=== PATIENT | female | born 1930 | race Two or more races ===

== ENCOUNTER 2020-04-23 17:15 | Inpatient (IN) | payer MEDICARE, OTHER ==
[~2020-04-23] VITALS: Ht 167.6 cm; Wt 103.4 kg
[2020-04-23] MEDS: METOPROLOL TARTRATE 25 MG TABLET PO SCH (00:44)
[2020-04-23] MEDS ORDERED: OLANZAPINE 10 MG VIAL IM ONE ×2 (17:20→17:30)
--- NOTE | 2020-04-23 17:25 | NUR ---
KENYETTA FROM HOME TO ER BED 6. AAOX1. IN MOD RESP DISTRESS, TACHYPNEIC AND SATTING @ 82% ON NON REBREATHER. BROUGHT IN FOR SOB. PT WAS REPORTED COVID POSITIVE. SHE WAS NOTED SATTING AT 70% BY THE EMS. PT PLACED ON HI FLOW O2 AND NOW SATTING @ 95%. PT IS THOU NOTED KEEPS REMOVING HER CANULA. WAS AT THE BEDSIDE FOR EVAL. ORDERS RECEIVED, NOTED AND CARRIED OUT. IV LINE ESTABLISHED ON R WRIST 20G. BLOOD DRAWN AND SENT TO LAB. PT ON MONITOR.
[2020-04-23 17:55] LABS: BASOPHILS % (AUTO) 0.3 % (0.0-2.0); EOSINOPHILS % (AUTO) 0.1 % (0.0-6.0); HEMATOCRIT 47 % (33-45); HEMOGLOBIN 15.3 g/dL (11.5-14.8); LYMPHOCYTES # (AUTO) 0.6 /CMM (0.8-4.8); LYMPHOCYTES % (AUTO) 8.3 % (20.0-44.0); MEAN CORPUSCULAR HGB CONC 32 g/dl (31.0-36.0); MEAN CORPUSCULAR VOLUME 97 fL (82-100); MONOCYTES # (AUTO) 0.5 /CMM (0.1-1.30); NEUTROPHILS # (AUTO) 5.7 /CMM (1.8-8.9); NEUTROPHILS % (AUTO) 84.3 % (43.0-81.0); PLATELET COUNT (AUTO) 153 /CMM (150-450); RED BLOOD CELL COUNT(AUTO) 4.88 MIL/uL (4.0-5.2); WHITE BLOOD COUNT (AUTO) 6.8 K/uL (4.3-11.0)
[2020-04-23] MEDS ORDERED: MEMA10TA PO (17:55)
[2020-04-23] MEDS ORDERED: ACET325T53 PO (17:55)
[2020-04-23] MEDS ORDERED: TRAM50TA2 PO (17:55)
[2020-04-23] MEDS ORDERED: GABA100C PO (17:55)
[2020-04-23] MEDS ORDERED: ATOR40TA PO (17:55)
[2020-04-23] MEDS ORDERED: ASCO500T20 PO (17:55)
[2020-04-23] MEDS ORDERED: [UNRECOGNIZED DRUG - CODE] PO (17:55)
[2020-04-23] MEDS ORDERED: MAGN400O6 PO (17:55)
[2020-04-23] MEDS ORDERED: CHOL200010 PO (17:55)
[2020-04-23] MEDS ORDERED: AREDS PO (17:55)
[2020-04-23] MEDS ORDERED: GABA300C PO (17:55)
[2020-04-23] MEDS ORDERED: CLOP75TA15 PO (17:55)
[2020-04-23] MEDS ORDERED: BISA10SU61 RC (17:55)
[2020-04-23] MEDS ORDERED: FURO-145 PO (17:55)
[2020-04-23] MEDS ORDERED: POTA8CAP20 PO (17:55)
[2020-04-23] MEDS ORDERED: PRAZ1CAP5 PO (17:55)
[2020-04-23] MEDS ORDERED: QUERCETIN PO (17:55)
[2020-04-23] MEDS ORDERED: METO25TA6 PO (17:55)
[2020-04-23] MEDS ORDERED: NA P133E RC (17:55)
[2020-04-23] MEDS ORDERED: MELA3TAB41 PO (17:55)
[2020-04-23] MEDS ORDERED: TRAZ-182 PO (17:55)
[2020-04-23 18:07] LABS: CALCIUM, SERUM 8.5 mg/dL (8.5-10.1); CARBON DIOXIDE 21 mmol/L (21-32); CHLORIDE 101 mmol/L (98-107); CREATININE 2.1 mg/dL (0.6-1.3); GLUCOSE 127 mg/dL (74-106); POTASSIUM 4.4 mmol/L (3.5-5.1); SODIUM SERUM 137 mmol/L (136-145); UREA NITROGEN, BLOOD 70 mg/dL (7-18)
--- NOTE | 2020-04-23 18:18 | NUR ---
LAB CALLED LACTIC ACID IS 2.2
--- NOTE | 2020-04-23 18:25 | NUR ---
MOVE SHEET SUBMITTED AND CALLED FOR BED.
[2020-04-23 18:26] LABS: ALANINE AMINOTRANSFERASE 28 U/L (12-78); ALBUMIN 2.7 g/dL (3.4-5.0); ALKALINE PHOSPHATASE 94 U/L (46-116); ASPARTATE AMINOTRANSFERASE 99 U/L (15-37); B-TYPE NATRIURETIC PEPTIDE 4804 PG/ML (0-125); BILIRUBIN,TOTAL 0.8 mg/dL (0.2-1.0); TOTAL PROTEIN, SERUM 7.4 g/dL (6.4-8.2)
[2020-04-23] MEDS ORDERED: HYDROCODONE/APAP 5/325MG TABLET PO PRN (18:30)
[2020-04-23] MEDS ORDERED: ONDANSETRON HCL/PF 4 MG/2 ML VIAL IVP PRN (18:30)
[2020-04-23] MEDS ORDERED: ZOLPIDEM TARTRATE 5 MG TABLET PO PRN (18:30)
[2020-04-23] MEDS ORDERED: MAG HYDROX/AL HYDROX/SIMETH 30 ML UDC PO PRN (18:30)
[2020-04-23] MEDS ORDERED: MAGNESIUM HYDROXIDE 30 ML UDC PO PRN (18:30)
[2020-04-23] MEDS ORDERED: Z GUARD REMEDY 2 OZ OINT TP PRN (18:30)
[2020-04-23 18:50] LABS: D-DIMER 3.57 mg/L(FEU (0.17-0.50)
[2020-04-23 18:53] LABS: ABG BASE EXCESS -4.8 mmol/L; ABG OXYGEN SATURATION 89.1 % (92.0-98.5); ABG PCO2 30.4 mmHg (35.0-45.0); ABG PH 7.403 (7.350-7.450); ABG PO2 58.3 mmHg (75.0-100.0); AaDO2 624.3 mmHg; COHb 0.5 % (0.5-1.5); MetHb 0.5 % (0.0-1.5); O2Hb 88.2 % (94.0-97.0); SITE, ABG Right Radial; VENT MODE, BG HFNC 60L 100%
[2020-04-23] MEDS ORDERED: PIPERACILLIN /TAZOBACTAM 3.375 G in IV D5W 50 ML IV ONE (19:00)
[2020-04-23] MEDS ORDERED: ASPIRIN 81 MG TAB.CHEW PO ONE (19:00)
[2020-04-23] MEDS ORDERED: methylPREDNISolone SOD SUCC 125 MG/2ML VIAL IV ONE (19:00)
[2020-04-23] MEDS ORDERED: methylPREDNISolone SOD SUCC 125 MG/2ML VIAL ONE (19:09)
[2020-04-23] MEDS ORDERED: ASPIRIN 81 MG TAB.CHEW ONE (19:09)
[2020-04-23 19:47] LABS: FERRITIN 613 ng/mL (8-388)
[2020-04-23 19:49] LABS: C-REACTIVE PROTEIN 18.4 mg/dL (0.0-0.9)
--- NOTE | 2020-04-23 19:58 | NUR ---
PT NOTED TACHYCARDIC MD MADE AWARE. AWAITING ORDERS. PT IS ALSO NOTED WITH O2 SAT 91%. PLACED ON O2 VIA NON REBREATHER OVER THE HI FLOW.
--- NOTE | 2020-04-23 20:00 | NUR ---
ASSUMED CARE OF PT. PT HERE FOR SOB FROM SNF. REC'D PT ON HIGHFLOW O2. PT HX OF DEMENTIA, REMINDED TO KEEP O2 ON, PT HAS PERIODS OF CONFUSION AND TAKES O2 OUT, MONITORED CLOSELY. VSS. RAY
[2020-04-23] MEDS ORDERED: AMIODARONE 150 MG in IV D5W 100 ML IV ONE (20:30)
[2020-04-23] MEDS ORDERED: PROPOFOL 200 MG/20 ML VIAL IV ONE (20:54)
[2020-04-23] MEDS ORDERED: ROCURONIUM BROMIDE 50 MG/5 ML IV ONE (20:54)
[2020-04-23] MEDS ORDERED: FEE EMEERGENCY 1 MIN EA MC ONE (20:54)
[2020-04-23] MEDS ORDERED: ETOMIDATE 2 MG/ML VIAL IV ONE (20:54)
[2020-04-23 21:04] LABS: BILIRUBIN,DIRECT 0.4 mg/dL (0.0-0.2)
[2020-04-23] MEDS: AMIODARONE 450 MG in IV D5W 250 ML IV PRN (21:24)
--- NOTE | 2020-04-23 22:00 | NUR ---
UPDATED FAMILY RE: PT'S CONDITION, SPOKE TO YESENIA. YESENIA WILL UPDATE OTHER FAMILY MEMBERS.
[2020-04-23] MEDS ORDERED: ENOXAPARIN SODIUM 30 MG/0.3 ML DISP.SYRIN SQ SCH (23:00)
[2020-04-24] MEDS ORDERED: ENOXAPARIN SODIUM 30 MG/0.3 ML DISP.SYRIN ONE (00:47)
--- NOTE | 2020-04-24 03:30 | NUR ---
amiodarone titrated to 0.5mg/min, per protocol
[2020-04-24] MEDS ORDERED: AMIODARONE 150 MG/3 ML VIAL IV ONE (05:05)
[2020-04-24 06:25] LABS: BASOPHILS % (AUTO) 0.4 % (0.0-2.0); HEMATOCRIT 46 % (33-45); LYMPHOCYTES # (AUTO) 0.3 /CMM (0.8-4.8); LYMPHOCYTES % (AUTO) 6.1 % (20.0-44.0); MEAN CORPUSCULAR HGB CONC 33 g/dl (31.0-36.0); MEAN CORPUSCULAR VOLUME 95 fL (82-100); MONOCYTES # (AUTO) 0.2 /CMM (0.1-1.30); MONOCYTES % (AUTO) 3.2 % (2.0-12.0); NEUTROPHILS # (AUTO) 4.3 /CMM (1.8-8.9); NEUTROPHILS % (AUTO) 90.3 % (43.0-81.0); PLATELET COUNT (AUTO) 148 /CMM (150-450); RED BLOOD CELL COUNT(AUTO) 4.79 MIL/uL (4.0-5.2); WHITE BLOOD COUNT (AUTO) 4.8 K/uL (4.3-11.0)
[2020-04-24 07:00] LABS: CALCIUM, SERUM 8.3 mg/dL (8.5-10.1); CARBON DIOXIDE 24 mmol/L (21-32); CHLORIDE 100 mmol/L (98-107); CREATININE 2.1 mg/dL (0.6-1.3); GLUCOSE 192 mg/dL (74-106); MAGNESIUM 2.5 mg/dL (1.8-2.4); PHOSPHORUS 4.3 mg/dL (2.5-4.9); POTASSIUM 4.2 mmol/L (3.5-5.1); SODIUM SERUM 136 mmol/L (136-145); UREA NITROGEN, BLOOD 76 mg/dL (7-18)
[2020-04-24 07:06] LABS: CHOLESTEROL 118 mg/dL (<200); HDL CHOLESTEROL 30 mg/dL (40-60); LDL 73 mg/dL (0-99); THYROID STIMULATING HORMONE 0.715 uIU/mL (0.358-3.74); TRIGLYCERIDES 114 mg/dL (30-150)
[2020-04-24] MEDS: PANTOPRAZOLE 40 MG TABLET.DR PO SCH (07:30)
[2020-04-24] MEDS: METOPROLOL TARTRATE 25 MG TABLET PO SCH ×2 (08:45→21:00)
[2020-04-24] MEDS ORDERED: CLOPIDOGREL BISULFATE 75 MG TABLET ONE (08:56)
[2020-04-24] MEDS ORDERED: DEXAMETHASONE SOD PHOSPHATE 10 MG/ML VIAL IV ONE (09:00)
[2020-04-24] MEDS: CLOPIDOGREL BISULFATE 75 MG TABLET PO SCH (09:13)
--- NOTE | 2020-04-24 09:34 | NUR ---
PATIENT A/OX1, CONFUSED NEPALI SPEAKING. KEEP REMOVING OXYGEN MASK. RE-ORIENTED.
--- NOTE | 2020-04-24 10:40 | NUR ---
ABG result relayed to Dr. Pedroza. Per , no change.
[2020-04-24] MEDS: APIXABAN 2.5 MG TABLET PO SCH ×2 (12:32→20:27)
[2020-04-24 12:37] LABS: ABG BASE EXCESS -4.9 mmol/L; ABG OXYGEN SATURATION 91.6 % (92.0-98.5); ABG PCO2 29.4 mmHg (35.0-45.0); ABG PH 7.411 (7.350-7.450); AaDO2 619.6 mmHg; COHb 0.2 % (0.5-1.5); MetHb 0.3 % (0.0-1.5); O2Hb 91.1 % (94.0-97.0); SITE, ABG Right Radial; VENT MODE, BG HFNC 60L 100%
--- NOTE | 2020-04-24 18:07 | NUR ---
REPORT GIVEN TO LIO MONTERROSO. PT AWAITING TRANSFER TO FLOOR.
--- NOTE | 2020-04-24 18:24 | NUR ---
RT NOTE TRANSPORTED FROM ER TO - WITH NON REBREATHER 15L. PLACED BACK ON HFNC 100% @ 60L.
--- NOTE | 2020-04-24 18:32 | NUR ---
PATIENT TRANSFERRED TO FLOOR, NO DISTRESS NOTED. TOLERATING NCHF. ENDORSED TO LIO MONTERROSO.
--- NOTE | 2020-04-24 19:00 | NUR ---
16 FR ARZOLA CATHETER INSERTED AT THIS TIME. PT TOLERATED WELL. TEA COLORED URINE OUTPUT DRAINING TO GRAVITY. WILL ENDORSE TO ASSISTANT CUSTOMER SERVICE MANAGER NURSE FOR RACHEL
--- NOTE | 2020-04-24 19:30 | NUR ---
TELE/RN NOTES PATIENT IN BED RESTING. A/X X 1-2 BURKINAN SPEAKING. PATIENT WITH NON REBREATHER 15L AND ON HFNC 100% @ 60L.
--- NOTE | 2020-04-24 19:50 | NUR ---
TELE/RN NOTES PATIENT START ON AMIODARONE DRIP AT 1945 HOURS. STARTED AT RATE 1ML/MIN X 6 HOURS AT 33.3 ML/HR
[2020-04-24 20:00] VITALS: BP 123/98
[2020-04-24] MEDS: AMIODARONE 450 MG in IV D5W 250 ML IV PRN (20:30)
[2020-04-25] MEDS: ACETAMINOPHEN 325 MG TABLET PO PRN (00:03)
[2020-04-25 00:47] VITALS: BP 135/80
--- NOTE | 2020-04-25 01:45 | NUR ---
TELE/RN NOTES AMIODARONE DRIP TITRATED TO 0.5MG/MIN AT 16.6MLS/HR AT 0145HRS TIME 18 HOURS.
[2020-04-25] MEDS: IV NS 0.9% 1,000 ML IV PRN ×3 (02:09→19:25)
[2020-04-25 04:00] VITALS: BP 150/79
[2020-04-25 05:09] LABS: ABG BASE EXCESS -5.8 mmol/L; ABG OXYGEN SATURATION 97.4 % (92.0-98.5); ABG PCO2 27.5 mmHg (35.0-45.0); ABG PH 7.411 (7.350-7.450); ABG PO2 95.1 mmHg (75.0-100.0); AaDO2 590.4 mmHg; COHb 0.5 % (0.5-1.5); MetHb 0.2 % (0.0-1.5); O2Hb 96.7 % (94.0-97.0); SITE, ABG Right Brachial; VENT MODE, BG HFNC 100% 60 LPM + NRB
[2020-04-25] MEDS: AMIODARONE 450 MG in IV D5W 250 ML IV PRN ×2 (05:21→23:22)
--- NOTE | 2020-04-25 06:54 | NUR ---
TELE/RN NOTES PATIENT IN BED RESTING. PATIENT IS ALERT AND ORIENTED X1.. PATIENTS BREATHING IS EVEN AND UNLABORED. NO SIGNS OF RESPIRATORY DISTRESS NOTED. TELE READING AFIB UNCONTROLLED. PATIENT IN NO SIGNS OF DISTRESS. ALL NEEDS HAVE BEEN MET DURING SHIFT. SAFETY MEASURES ARE IN PLACE, CALL LIGHT WITHIN REACH. WILL ENDORSE CARE TO DAY SHIFT NURSE.
--- NOTE | 2020-04-25 07:05 | NUR ---
TRACTOR TRAILER MOVING VAN DRIVER OPENING NOTES RECEIVED PT AWAKE AT THIS TIME. AOX1-2. NO SOB NOTED, NO S/S OF ANY ACUTE DISTRESS NOTED. PT ON EXTERNAL HORTICULTURAL SPECIALTY GROWER FIELD READING AFIB UNCONTROLLED IN THE 151. NO SIGN OF PAIN NOTED AT THIS TIME. RESPIRATIONS ARE EVEN AND UNLABORED. PT NOTED ON HIGH FLOW AND NON REBREATHER. IV ACCESS NOTED IN RIGHT WRIST G#20 AND LEFT WRIST G#22, BOTH INTACT, PATENT AND FLUSHING WELL. ARZOLA CATHETER IN PLACE AND DRAINING TO GRAVITY CLEAR YELLOW URINE OUTPUT.PT NOTED ON BILATERAL SOFT WRIST RESTRAINS, PULSES PRESENT BILATERALLY, GOOD CIRCULATION NOTED, CAPILLARY REFILL <3SECONDS. SAFETY PRECAUTION IN PLACE AND MAINTAINED AT ALL TIMES. BED IN LOWEST LOCKED POSITION, HOB ELEVATED, SIDE RAILS UP X 2, CALL LIGHT AND TABLE WITHIN REACH. WILL CONTINUE TO MONITOR
[2020-04-25 08:00] VITALS: BP 110/82
[2020-04-25] MEDS: CLOPIDOGREL BISULFATE 75 MG TABLET PO SCH (08:57)
[2020-04-25] MEDS: METOPROLOL TARTRATE 25 MG TABLET PO SCH ×2 (08:57→21:29)
[2020-04-25] MEDS: PANTOPRAZOLE 40 MG TABLET.DR PO SCH (08:57)
[2020-04-25] MEDS: APIXABAN 2.5 MG TABLET PO SCH ×2 (08:58→16:36)
[2020-04-25 09:03] LABS: HEMATOCRIT 46 % (33-45); LYMPHOCYTES # (AUTO) 0.4 /CMM (0.8-4.8); MEAN CORPUSCULAR HGB CONC 33 g/dl (31.0-36.0); MEAN CORPUSCULAR VOLUME 95 fL (82-100); MONOCYTES # (AUTO) 0.9 /CMM (0.1-1.30); MONOCYTES % (AUTO) 6.6 % (2.0-12.0); NEUTROPHILS # (AUTO) 12.4 /CMM (1.8-8.9); NEUTROPHILS % (AUTO) 90.4 % (43.0-81.0); PLATELET COUNT (AUTO) 224 /CMM (150-450); RED BLOOD CELL COUNT(AUTO) 4.87 MIL/uL (4.0-5.2); WHITE BLOOD COUNT (AUTO) 13.8 K/uL (4.3-11.0)
[2020-04-25 10:06] LABS: ALANINE AMINOTRANSFERASE 28 U/L (12-78); ALBUMIN 2.9 g/dL (3.4-5.0); ALKALINE PHOSPHATASE 99 U/L (46-116); ASPARTATE AMINOTRANSFERASE 74 U/L (15-37); BILIRUBIN,TOTAL 0.8 mg/dL (0.2-1.0); CALCIUM, SERUM 8.4 mg/dL (8.5-10.1); CARBON DIOXIDE 21 mmol/L (21-32); CHLORIDE 102 mmol/L (98-107); GLUCOSE 188 mg/dL (74-106); MAGNESIUM 2.5 mg/dL (1.8-2.4); POTASSIUM 4.1 mmol/L (3.5-5.1); SODIUM SERUM 137 mmol/L (136-145); TOTAL PROTEIN, SERUM 7.5 g/dL (6.4-8.2)
[2020-04-25 10:07] LABS: UREA NITROGEN, BLOOD 82 mg/dL (7-18)
[2020-04-25 12:00] VITALS: BP 105/64
[2020-04-25 16:00] VITALS: BP 132/107
--- NOTE | 2020-04-25 19:31 | NUR ---
EMPLOYEE DEVELOPMENT SPECIALIST CLOSING NOTES PT AWAKE IN BED AT THIS TIME. PT REMAINED STABLE THROUGHOUT SHIFT. ALL CARE, NEED, MEDICATIONS AND TREATMENT ADMINISTERED ANTICIPATED PER ORDER. PT KEPT CLEAN AND DRY. ARZOLA CATHETER CARE PROVIDED. RESTRAINTS ASSESS Q2HR AND PRN. SKIN INTACT AND GOOD CIRCULATION NOTED. PULSES PRESENT. SAFETY PRECAUTION IN PLACE AND MAINTAINED AT ALL TIMES. BED IN LOWEST LOCKED POSITION, HOB ELEVATED, SIDE RAILS UP X 2, CALL LIGHT AND TABLE WITHIN REACH. WILL ENDORSE TO SILK SCREEN PRINTER NURSE FOR RACHEL
--- NOTE | 2020-04-25 19:35 | NUR ---
TELE/RN OPENING NOTES: RECEIVED PATIENT AWAKE AT THIS TIME. UKRAINIAN SPEAKING, A/OX1. CONFUSED. NO SOB NOTED, NO S/S OF ANY ACUTE DISTRESS NOTED. ON EXTERNAL LOG CHAIN WORKER READING AFIB UNCONTROLLED IN THE 140. NO S/S PAIN AT THIS TIME. RESPIRATIONS ARE EVEN AND UNLABORED. VS MACHINE AT BEDSIDE FOR CONTINUOUS HOURLY VS CHECKS. NOTED ON HIGH FLOW NS, FLOW RATE AT 60L. FIO2 100%, AND NON REBREATHER. IV ACCESS NOTED IN RIGHT WRIST #20G RUNNING AMIODARONE DRIP AT 0.5MG/MIN ORDERED; AND LEFT WRIST #22G, INFUSING NS @125MLS/HR. ARZOLA CATHETER IN PLACE AND DRAINING CLEAR YELLOW URINE OUTPUT. BILATERAL SOFT WRIST RESTRAINTS PRESENT, PULSES PRESENT BILATERALLY, GOOD CIRCULATION NOTED, CAPILLARY REFILL <3SECONDS. SAFETY PRECAUTION IN PLACE AND MAINTAINED AT ALL TIMES. BED IN LOWEST LOCKED POSITION, HOB ELEVATED, SIDE RAILS UP X 2, CALL LIGHT AND TABLE WITHIN REACH. WILL CONTINUE TO MONITOR PT HOURLY.
[2020-04-25 20:00] VITALS: BP 148/89
[2020-04-25 20:07] LABS: ABG BASE EXCESS -5.2 mmol/L; ABG OXYGEN SATURATION 90.8 % (92.0-98.5); ABG PCO2 31.8 mmHg (35.0-45.0); ABG PH 7.384 (7.350-7.450); ABG PO2 60.3 mmHg (75.0-100.0); AaDO2 620.9 mmHg; COHb 0.9 % (0.5-1.5); MetHb 0.3 % (0.0-1.5); O2Hb 89.7 % (94.0-97.0); SITE, ABG Right Radial; VENT MODE, BG NRB + HFNC 60L 100%
--- NOTE | 2020-04-25 22:00 | NUR ---
TELE/RN NOTES: PT'S DAUGHTER CALLED TO CHECK IN ON THE PT'S STATUS. PER PT'S DAUGHTER REQUESTED TO CALL THE PATIENT. PT WAS ASSISTED WITH THE PHONE CALL. PT APPEARS TO BE IN A GOOD MOOD, TALKING TO DAUGHTER. PT'S DAUGHTER VERY HAPPY TO GET A CHANCE TO CONTACT THE PT. WILL CONTINUE TO MONITOR PT. FOR NOW.
--- NOTE | 2020-04-25 23:22 | NUR ---
TELE/RN NOTES: NEW BAG OF AMIODARONE DRIP STARTED. ADMINISTERED AT 2322 RUNNING WITH DOSE RATE OF 0.5MG/MIN AT 16.667 ORDERED. VSS AND WNL. BP; 132/76 HR: 109. WILL MONITOR PATIENT'S VS HOURLY.
[2020-04-26] VITALS (15 sets, daily range): BP systolic 104–135; BP diastolic 57–91
[2020-04-26] MEDS ORDERED: MORPHINE SULFATE INJ 2 MG/ML DISP.SYRIN IV ONE
--- NOTE | 2020-04-26 | NUR ---
TELE/RN NOTES: PT. IS VERY AGITATED, SCREAMING, ATTEMPTS TO REMOVE THE RESTRAINTS, HR GOES UP TO 154. BP: 132/81. RR; 18 SPO2: 93. RAILROAD CAR CLEANER AUTO JOB ESTIMATOR SHAMEKA MADE AWARE AND ORDERED MORPHINE 1 MG X1 IVP. ADMINISTERED. WILL CONTINUE TO MONITOR AT Q1HR.
[2020-04-26] MEDS ORDERED: OLANZAPINE 10 MG VIAL IM ONE (02:30)
--- NOTE | 2020-04-26 02:50 | NUR ---
TELE/RN NOTES: PT APPEARS TO BE VERY AGITATED. YELLING, ATTEMPTING TO TAKE OUT RESTRAINTS. HR ELEVATED TO 162. BP: 142/89. JAVA APPLICATION ENGINEER RIGGING HELPER SHAMEKA PHAM MADE AWARE AND ORDERED ZYPREXA IM 5MG X1. ADMINISTERED ON THE LEFT DELTOID. TOLERATED WELL. WILL CONTINUE TO MONITOR HOURLY.
[2020-04-26] MEDS: IV NS 0.9% 1,000 ML IV PRN ×3 (04:02→18:46)
[2020-04-26 06:55] LABS: BASOPHILS % (AUTO) 0.1 % (0.0-2.0); HEMATOCRIT 44 % (33-45); HEMOGLOBIN 14.2 g/dL (11.5-14.8); LYMPHOCYTES # (AUTO) 0.3 /CMM (0.8-4.8); LYMPHOCYTES % (AUTO) 1.8 % (20.0-44.0); MEAN CORPUSCULAR HGB CONC 33 g/dl (31.0-36.0); MEAN CORPUSCULAR VOLUME 95 fL (82-100); MONOCYTES # (AUTO) 0.7 /CMM (0.1-1.30); MONOCYTES % (AUTO) 4.6 % (2.0-12.0); NEUTROPHILS # (AUTO) 13.3 /CMM (1.8-8.9); NEUTROPHILS % (AUTO) 93.5 % (43.0-81.0); PLATELET COUNT (AUTO) 178 /CMM (150-450); RED BLOOD CELL COUNT(AUTO) 4.62 MIL/uL (4.0-5.2); WHITE BLOOD COUNT (AUTO) 14.3 K/uL (4.3-11.0)
[2020-04-26 07:48] LABS: CALCIUM, SERUM 8.2 mg/dL (8.5-10.1); CREATININE 1.2 mg/dL (0.6-1.3); MAGNESIUM 2.3 mg/dL (1.8-2.4); PHOSPHORUS 2.4 mg/dL (2.5-4.9); POTASSIUM 4.2 mmol/L (3.5-5.1)
--- NOTE | 2020-04-26 07:58 | NUR ---
TELE/RN CLOSING NOTES: NO SIGNIFICANT CHANGES IN CONDITION. PT REMAINS A/OX1. CONFUSED. NO SOB NOTED, NO S/S OF ANY ACUTE DISTRESS NOTED. ON EXTERNAL TRANSMISSIONS SYSTEMS OPERATOR READING AFIB UNCONTROLLED IN THE 130. NO S/S PAIN AT THIS TIME. VS MACHINE AT BEDSIDE FOR CONTINUOUS HOURLY VS CHECKS. NOTED ON HIGH FLOW NS, FLOW RATE AT 60L. FIO2 100%, AND NON REBREATHER. IV ACCESS NOTED IN RIGHT WRIST #20G RUNNING AMIODARONE DRIP AT 0.5MG/MIN ORDERED; AND LEFT WRIST #22G, INFUSING NS @125MLS/HR. ARZOLA CATHETER IN PLACE AND DRAINING CLEAR YELLOW URINE OUTPUT. BILATERAL SOFT WRIST RESTRAINTS PRESENT, PULSES PRESENT BILATERALLY, GOOD CIRCULATION NOTED, CAPILLARY REFILL <3SECONDS. SAFETY PRECAUTION IN PLACE AND MAINTAINED AT ALL TIMES. BED IN LOWEST LOCKED POSITION, HOB ELEVATED, SIDE RAILS UP X 2, CALL LIGHT AND TABLE WITHIN REACH. ENDORSED PLAN OF CARE TO DAY SHIFT NURSE.
[2020-04-26] MEDS: CLOPIDOGREL BISULFATE 75 MG TABLET PO SCH (09:05)
[2020-04-26] MEDS: METOPROLOL TARTRATE 25 MG TABLET PO SCH ×3 (09:05→18:47)
[2020-04-26] MEDS: PANTOPRAZOLE 40 MG TABLET.DR PO SCH (09:05)
[2020-04-26] MEDS: APIXABAN 2.5 MG TABLET PO SCH ×2 (09:06→17:34)
[2020-04-26 10:33] LABS: CREATININE, URINE 104.1 MG/DL (30.0-125.0)
[2020-04-26 10:39] LABS: ABG OXYGEN SATURATION 80.5 % (92.0-98.5); ABG PCO2 34.2 mmHg (35.0-45.0); ABG PH 7.404 (7.350-7.450); AaDO2 633.8 mmHg; COHb 0.7 % (0.5-1.5); MetHb 0.1 % (0.0-1.5); O2Hb 79.9 % (94.0-97.0); SITE, ABG Right Radial; VENT MODE, BG HFNC 60L 100% +NRB
[2020-04-26 10:39] LABS: URINE TOTAL PROTEIN 45.4 mg/dL (0-11.9)
[2020-04-26 11:20] LABS: ABG BASE EXCESS -4.7 mmol/L; ABG OXYGEN SATURATION 83.3 % (92.0-98.5); ABG PCO2 29.3 mmHg (35.0-45.0); ABG PH 7.415 (7.350-7.450); ABG PO2 47.4 mmHg (75.0-100.0); AaDO2 636.3 mmHg; COHb 0.9 % (0.5-1.5); MetHb 0.3 % (0.0-1.5); O2Hb 82.3 % (94.0-97.0); SITE, ABG Right Radial; VENT MODE, BG HFNC 60L 100% +NRB
--- NOTE | 2020-04-26 11:46 | NUR ---
ICU NOTES DR. BLEVINS INFORMED OF AGB RESULTS ORDERS OBTAINED TO REPEAT, ABG REPEATED INFORMED DR. CLAYTON. ORDERS TO TRANSFER PATIENT TO ICU. BACK TENDER MADE AWARE FOR BED. STATES NO BED AVAILABLE . DR. BLEVINS MADE AWARE ORDERS TO TRANSFER PATIENT TO [facility]. BACK TENDER MADE AWARE STATES NO BED AVAILABLE. INFORMED DR. BLEVINS. WILL CONTINUE TO MONITOR. PATIENT WITH LABORED BREATHING SATURATING FORM 91% TO 92. ON TELE MONITOR UNCONTROLLED A-FIB. WILL CONTINUE TO MONITOR.
--- NOTE | 2020-04-26 12:10 | NUR ---
MERCHANT TAILOR NOTES PATIENT IN BED SLEEPING. EASILY AROUSABLE. WILL CONTINUE TO MONITOR.
[2020-04-26] MEDS: DIGOXIN INJ 0.5 MG/2 ML AMPUL IV SCH ×2 (12:51→18:46)
--- NOTE | 2020-04-26 15:26 | NUR ---
RN NOTES IV Fluids changed to 75ml/HR as per orders. Will continue to monitor.
--- NOTE | 2020-04-26 16:11 | NUR ---
QC ANALYST NOTES VERBAL ORDER OBTAINED FOR MIDLINE, MIDLINE NURSE MADE AWARE, NEW MIDLINE INSERTED ON JUNO G18.
[2020-04-26] MEDS: ACETAMINOPHEN 325 MG TABLET PO PRN (16:14)
--- NOTE | 2020-04-26 16:14 | NUR ---
RN Note Patient noted with fever of 100.0. Tylenol administered as per order. Will continue to monitor.
--- NOTE | 2020-04-26 16:20 | NUR ---
STILL CLEANER TUBE NOTES DR. BLEVINS MADE AWARE OF PATIENTS ABG LEVELS. NO NEW ORDERS. WAITING FOR ICU BED.
[2020-04-26] MEDS ORDERED: K PHOS NEUTRAL 250 MG TABLET PO ONE (16:30)
[2020-04-26 17:05] LABS: ABG BASE EXCESS -4.5 mmol/L; ABG OXYGEN SATURATION 85.4 % (92.0-98.5); ABG PCO2 28.3 mmHg (35.0-45.0); ABG PH 7.428 (7.350-7.450); ABG PO2 49.9 mmHg (75.0-100.0); AaDO2 634.8 mmHg; COHb 0.4 % (0.5-1.5); MetHb 0.3 % (0.0-1.5); O2Hb 84.8 % (94.0-97.0); SITE, ABG Left Radial
--- NOTE | 2020-04-26 17:50 | NUR ---
PSYCHOLOGY PROFESSOR NOTES GOT A BED IN ICU 252. TRANSFERRED PATIENT TO ROOM [address] RUSHING ORDERS. PATIENT AWAKE ON HIGH FLOW OXYGEN. REPORT GIVEN TO STACEY AT BEDSIDE.
--- NOTE | 2020-04-26 17:52 | NUR ---
RECEIVED PT VIA BED. VS FOLLOWS BP 105/54, HR 121 IN A FIB, 88% SAO2 WITH HIGH FLOW 60L/MIN AND NRB 16L/MIN FIO 100%. TELEPHONE REPORT RECEIVED FROM DIANE. ARZOLA INTACT DRAINING YELLOW URINE AND JUNO MIDLINE FLUSHED. INTACT. DRESSING INTACT. ALL HOSPITAL POLICY SAFETY PRECAUTIONS FOLLOWED AND IMPLEMENTED. BED LOW, LOCKED, HOB ELEVATED, RAILS X2, CALL LIGHT IN REACH.
--- NOTE | 2020-04-26 19:33 | NUR ---
PT IN BED A HOB ELEVATED. ALL ORDERS IMPLEMENTED. MD AWARE OF STATUS. ALL SAFETY PRECAUTIONS IMPLEMENTED. NRB AND HIGH FLOW ON ORDERED WITH SAO2 83-90%. A/OX1 AND CONFUSED. ATTEMPTING TO REMOVE LINES. ENDORSED TO PM RN. TURNED Q2H AND REPORTED TO MD NEEDED. FAMILY UPDATED ON SITUATION.
[2020-04-26 20:41] LABS: ABG BASE EXCESS -3.6 mmol/L; ABG OXYGEN SATURATION 83.7 % (92.0-98.5); ABG PCO2 31.9 mmHg (35.0-45.0); ABG PH 7.412 (7.350-7.450); ABG PO2 48.2 mmHg (75.0-100.0); AaDO2 632.9 mmHg; COHb 0.7 % (0.5-1.5); O2Hb 83.1 % (94.0-97.0); SITE, ABG Left Brachial; VENT MODE, BG HFNC 60L 100% +NRB
[2020-04-26] MEDS ORDERED: HYDROMORPHONE 1 MG/1 ML DISP.SYRIN IV ONE (23:00)
--- NOTE | 2020-04-26 23:45 | NUR ---
RN NOTES PATIENT C/O OF GENERAL BODY ACHES 01/07. MD NOTIFIED. NEW ORDER RECEIVED TO GIVE DILAUDID 1MG IV X1. ORDER NOTED AND CARRIED OUT. MEDICATION GIVEN ORDERED. WILL CON TO MONITOR FOR RACHEL. SAFETY MAINTAINED.
[2020-04-27] VITALS (97 sets, daily range): BP systolic 44–178; BP diastolic 31–123
--- NOTE | 2020-04-27 | NUR ---
RN NOTES FRANKOID WAS EFFECTIVE PT IS RESTING COMFORTABLE. ALL SAFETY MEASURES IN PLACE. CALL LIGHT WITHIN REACH. WILL CONT TO MONITOR.
[2020-04-27] MEDS: DIGOXIN INJ 0.5 MG/2 ML AMPUL IV SCH ×3 (00:35→19:56)
[2020-04-27] MEDS: METOPROLOL TARTRATE 25 MG TABLET PO SCH ×2 (00:36→06:40)
[2020-04-27] MEDS ORDERED: PHENYLEPHRINE 10 MG/ML VIAL ONE (01:26)
[2020-04-27] MEDS: PHENYLEPHRINE 100 MG in IV NS 0.9% 240 ML IV PRN ×2 (02:24→19:40)
[2020-04-27 04:45] LABS: HEMATOCRIT 37 % (33-45); HEMOGLOBIN 12.3 g/dL (11.5-14.8); LYMPHOCYTES # (AUTO) 0.2 /CMM (0.8-4.8); LYMPHOCYTES % (AUTO) 2.7 % (20.0-44.0); MEAN CORPUSCULAR HGB CONC 33 g/dl (31.0-36.0); MEAN CORPUSCULAR VOLUME 96 fL (82-100); MONOCYTES # (AUTO) 0.2 /CMM (0.1-1.30); MONOCYTES % (AUTO) 2.8 % (2.0-12.0); NEUTROPHILS # (AUTO) 7.9 /CMM (1.8-8.9); NEUTROPHILS % (AUTO) 94.5 % (43.0-81.0); PLATELET COUNT (AUTO) 119 /CMM (150-450); RED BLOOD CELL COUNT(AUTO) 3.88 MIL/uL (4.0-5.2); WHITE BLOOD COUNT (AUTO) 8.4 K/uL (4.3-11.0)
[2020-04-27 04:57] LABS: CALCIUM, SERUM 7.2 mg/dL (8.5-10.1); CARBON DIOXIDE 21 mmol/L (21-32); CHLORIDE 117 mmol/L (98-107); GLUCOSE 110 mg/dL (74-106); MAGNESIUM 2.1 mg/dL (1.8-2.4); PHOSPHORUS 2.5 mg/dL (2.5-4.9); POTASSIUM 4.1 mmol/L (3.5-5.1); SODIUM SERUM 147 mmol/L (136-145); UREA NITROGEN, BLOOD 44 mg/dL (7-18)
[2020-04-27] MEDS: PANTOPRAZOLE 40 MG TABLET.DR PO SCH (08:00)
[2020-04-27] MEDS: APIXABAN 2.5 MG TABLET PO SCH ×2 (09:00→17:53)
[2020-04-27] MEDS: CLOPIDOGREL BISULFATE 75 MG TABLET PO SCH (09:00)
[2020-04-27] MEDS: IV NS 0.9% 1,000 ML IV PRN (09:44)
--- NOTE | 2020-04-27 10:13 | NUR ---
RT PATIENT ORALLY INTUBATED WITH A 7.5 ETT SECURED AT 23CM MID LIP. PATIENT PLACED ON [facility] VENT WITH ORDERED SETTINGS PER DR BLEVINS. ALARMS CHECKED + AUDIBLE. ETT SECURE, IN PROPER PLACEMENT, AND PATENT. Addendum: 04/27/20 at 1119 by JONATHAN LOPEZ RT Amended: Links added.
--- NOTE | 2020-04-27 10:30 | NUR ---
RN NOTES PT SATURATION WAS [address] JARVIS AT BED SIDE NEW ORDER TO INTUBATE THE PATIENT. PT ORALLY INTUBATED VIA ETT TUBE SIZE 7.5/24, AC-24, TV-450, FIO2-100, PEEP-12. PATIENT PLACED ON [facility] VENT SETTING TOLERATING ORDERED. AMBU BAG AT BEDSIDE. VENT PLUGGED INTO RED OUTLET, ALARMS ARE SET AND AUDIBLE. DAUGHTER YESENIA NOTIFIED. WILL CONTINUE TO MONITOR CLOSELY.
[2020-04-27] MEDS: DEXAMETHASONE SOD PHOSPHATE 10 MG/ML VIAL IV SCH (11:02)
--- NOTE | 2020-04-27 11:39 | NUR ---
NOTED AFIB RVR ON BEDSIDE MONITOR
--- NOTE | 2020-04-27 11:40 | NUR ---
PAGED DR DUMONT RE INCREASED HR
--- NOTE | 2020-04-27 11:42 | NUR ---
RN NOTES PATIENT CONTINUES ON VENT SETTING TOLERATING ORDERED. NO S/S OF ACUTE DISTRESS NOTED. IV'S INTACT PATENT, FLUSHES WELL. VITAL SIGNS WNL. KEPT CLEAN DRY AND COMFORTABLE. F/C INTACT YELLOW URINE RUNNING TO GRAVITY. TURNING REPOSITIONING TOLERATED. ALL SAFETY MEASURES IN PLACE. CALL LIGHT WITHIN REACH. ENDORSED PATIENT TO AM RN FOR RACHEL.
--- NOTE | 2020-04-27 11:45 | NUR ---
RECEIVED CALL BACK FROM DR DUMONT. REVIEWED PT STATUS WITH HIM. DR DUMONT ASKS TO PAGE DR FERRIS FOR ORDERS BECAUSE HE IS ALREADY CONSULTING
--- NOTE | 2020-04-27 11:56 | NUR ---
TEXTED DR FERRIS ON CHARGE PHONE TO NOTIFY OF PT CONDITION. RECEIVED ORDER FOR 20MG DILTIAZEM IV PUSH THEN DRIP.
[2020-04-27] MEDS ORDERED: DILTIAZEM HCL IV 125 MG in IV NS 0.9% 100 ML IV PRN (12:30)
[2020-04-27] MEDS ORDERED: DILTIAZEM HCL 50 MG IV IV ONE (12:30)
--- NOTE | 2020-04-27 12:30 | NUR ---
RECEIVED CALL FROM PHARMACY, PT IS POSITIVE FOR MRSA NARES. PER PHARMACY, PLACE ORDER FOR MUPRICIN OINTMENT TO NARES.
--- NOTE | 2020-04-27 12:51 | NUR ---
PT REMAINS SEDATED FROM RSI. PROPOFOL READY TO HANG ONCE PT NEEDS IT
--- NOTE | 2020-04-27 12:51 | NUR ---
RT AT BEDSIDE FOR ABG. DR BLEVINS AT BEDSIDE
[2020-04-27 13:00] LABS: ABG BASE EXCESS -8.7 mmol/L; ABG PCO2 50.3 mmHg (35.0-45.0); ABG PH 7.207 (7.350-7.450); ABG PO2 176.1 mmHg (75.0-100.0); AaDO2 486.6 mmHg; COHb 0.6 % (0.5-1.5); MetHb 0.4 % (0.0-1.5); SITE, ABG Right Radial
--- NOTE | 2020-04-27 13:45 | NUR ---
COOLING MEASURES APPLIED FOR FEVER
[2020-04-27] MEDS: PROPOFOL 10MG/ML 50ML 50 ML IV PRN ×4 (14:31→23:13)
--- NOTE | 2020-04-27 15:18 | NUR ---
PT NOTED BORDERLINE HYPOTENSIVE AT THIS TIME. ON 20MCG/KG/MIN OF PROPOFOL BUT PT IS NOT ADEQUATELY SEDATED AT THAT LEVEL. INCREASED PROPOFOL TO 30MCG/KG/MIN, MONITOR BP CLOSELY. PT HAS NEOSYNEPHRINE ORDERED BUT NOT RUNNING CURRENTLY.
--- NOTE | 2020-04-27 16:19 | NUR ---
NEOSYNEPHRINE DRIP RESUMED AT 0.5MCG/KG/HR D/T HYPOTENSION Addendum: 04/27/20 at 1737 by FANG COOPER RN CORRECTION: NEOSYNEPHRINE HELD UNTIL AFTER DECREASING CARDIZEM GTT
--- NOTE | 2020-04-27 16:25 | NUR ---
UPDATED LOOM FIXER HELPER YAMILET OF PT STATUS, HE RECOMMENDS DECREASING RATE OF CARDIZEM GTT TO SEE IF IT HELPS WITH BP. RATE LOWERED TO 10MG/HR CARDIZEM.
--- NOTE | 2020-04-27 18:00 | NUR ---
PERIPHERAL IV SITE ON RIGHT HAND LEAKING, REDDENED, BUT NOT SWOLLEN OR HOT TO TOUCH. IV DC'D, PRESSURE DRESSING APPLIED, AND HAND ELEVATED.
--- NOTE | 2020-04-27 18:30 | NUR ---
DILTIAZEM DRIP DECREASED TO 5MG/HR D/T LOW BP.
--- NOTE | 2020-04-27 18:30 | NUR ---
NO FILTER NEEDLES IN ICU MED ROOM. CALLED [employer] TO ASK FOR MORE. Addendum: 04/27/20 at 1847 by FANG COOPER RN UNABLE TO GIVE DIGOXIN AT THIS TIME D/T SUPPLIED IN AMPULES
--- NOTE | 2020-04-27 19:00 | NUR ---
REPORT GIVEN TO JOURDAN MONTERROSO FOR RACHEL. ENDORSED LOW BP TO JOURDAN WITH PLAN TO RESUME RUFUS GTT. ENDORSED LACK OF FILTER NEEDLE SO UNABLE TO GIVE DIGOXIN.
--- NOTE | 2020-04-27 19:15 | NUR ---
ENGRAVER ORNAMENTAL DESIGN OPENING NOTES: Rec'd pt in bed intubated and sedated. No resp distress noted. Controlled a-fib on tele monitor. Right NGT in place. JUNO midline in place w/ NS infusing at 50ml/hr, Diprivan infusing at 30mcg. Burt catheter in place draining urine via gravity. Safety measures in place. Will continue to monitor.
[2020-04-27] MEDS: MUPIROCIN OINT 2% 22 GM TUBE NS SCH (21:00)
[2020-04-28] VITALS (55 sets, daily range): BP systolic 42–143; BP diastolic 17–90
[2020-04-28] MEDS: DIGOXIN INJ 0.5 MG/2 ML AMPUL IV SCH (00:46)
[2020-04-28] MEDS: PROPOFOL 10MG/ML 50ML 50 ML IV PRN ×9 (01:59→23:13)
[2020-04-28 04:28] LABS: BASOPHILS % (AUTO) 0.3 % (0.0-2.0); HEMATOCRIT 43 % (33-45); HEMOGLOBIN 14.1 g/dL (11.5-14.8); LYMPHOCYTES # (AUTO) 0.4 /CMM (0.8-4.8); LYMPHOCYTES % (AUTO) 2.6 % (20.0-44.0); MEAN CORPUSCULAR HGB CONC 33 g/dl (31.0-36.0); MEAN CORPUSCULAR VOLUME 95 fL (82-100); MONOCYTES # (AUTO) 0.6 /CMM (0.1-1.30); MONOCYTES % (AUTO) 4.2 % (2.0-12.0); NEUTROPHILS # (AUTO) 13.5 /CMM (1.8-8.9); NEUTROPHILS % (AUTO) 92.9 % (43.0-81.0); PLATELET COUNT (AUTO) 143 /CMM (150-450); RED BLOOD CELL COUNT(AUTO) 4.51 MIL/uL (4.0-5.2); WHITE BLOOD COUNT (AUTO) 14.6 K/uL (4.3-11.0)
[2020-04-28 05:04] LABS: CALCIUM, SERUM 8.2 mg/dL (8.5-10.1); CARBON DIOXIDE 21 mmol/L (21-32); CHLORIDE 118 mmol/L (98-107); CREATININE 1.1 mg/dL (0.6-1.3); GLUCOSE 167 mg/dL (74-106); POTASSIUM 4.7 mmol/L (3.5-5.1); SODIUM SERUM 149 mmol/L (136-145); UREA NITROGEN, BLOOD 44 mg/dL (7-18)
[2020-04-28 05:31] LABS: ABG BASE EXCESS -5.3 mmol/L; ABG OXYGEN SATURATION 92.4 % (92.0-98.5); ABG PCO2 33.1 mmHg (35.0-45.0); ABG PH 7.375 (7.350-7.450); AaDO2 327.4 mmHg; COHb 0.8 % (0.5-1.5); O2Hb 91.7 % (94.0-97.0); PEEP,BG 12 cm H2O; SITE, ABG A-Line; VT, ABG 500 mL
[2020-04-28] MEDS: IV NS 0.9% 1,000 ML IV PRN (06:41)
[2020-04-28] MEDS: PANTOPRAZOLE 40 MG TABLET.DR PO SCH (08:38)
[2020-04-28] MEDS: APIXABAN 2.5 MG TABLET PO SCH ×2 (08:39→17:31)
[2020-04-28] MEDS: DEXAMETHASONE SOD PHOSPHATE 10 MG/ML VIAL IV SCH (08:40)
[2020-04-28] MEDS: CLOPIDOGREL BISULFATE 75 MG TABLET PO SCH (08:40)
[2020-04-28] MEDS: MUPIROCIN OINT 2% 22 GM TUBE NS SCH ×2 (08:40→23:14)
[2020-04-28] MEDS: HYDROCORTISONE SOD SUCCINATE 100 MG/2 ML VIAL IV SCH ×3 (08:42→23:12)
--- NOTE | 2020-04-28 15:58 | NUR ---
RT PATIENT REMAINS IN CRITICAL CONDITION. INTUBATED ON [facility] VENT. FIO2 INCREASED TO 100% VENT ALARMS CHECKED + AUDIBLE, ETT SECURE AND PATENT IN PROPER POSITION. AMBU BAG AT HOB. Addendum: 04/28/20 at 1559 by JONATHAN LOPEZ RT Amended: Links added.
[2020-04-28] MEDS: PHENYLEPHRINE 100 MG in IV NS 0.9% 240 ML IV PRN ×3 (18:32→21:29)
[2020-04-28] MEDS: NOREPINEPHRINE 8 MG in IV NS 0.9% 242 ML IV PRN ×2 (18:35→21:49)
[2020-04-28] MEDS ORDERED: NOREPINEPHRINE 4 MG/4 ML AMPUL IV ONE (21:43)
[2020-04-29] VITALS (11 sets, daily range): BP systolic 64–114; BP diastolic 21–69
[2020-04-29] MEDS: PROPOFOL 10MG/ML 50ML 50 ML IV PRN (00:25)
[2020-04-29] MEDS: NOREPINEPHRINE 8 MG in IV NS 0.9% 242 ML IV PRN (00:28)
[2020-04-29] MEDS ORDERED: PHENYLEPHRINE 10 MG/ML VIAL ONE (01:38)
[2020-04-29] MEDS ORDERED: NOREPINEPHRINE 4 MG/4 ML AMPUL IV ONE (01:46)
[2020-04-29] MEDS ORDERED: NOREPINEPHRINE 32 MG in IV NS 0.9% 218 ML IV PRN (02:00)
[2020-04-29] MEDS ORDERED: VASOPRESSIN INJ 20 UNIT/ML VIAL ONE (03:53)
[2020-04-29] MEDS ORDERED: VASOPRESSIN INJ 40 UNIT in IV NS 0.9% 38 ML IV PRN (04:00)
--- NOTE | 2020-04-29 04:32 | NUR ---
COMMUNITY DEVELOPMENT DIRECTOR PT NOTED TO BE MIGUEL ANGEL ON MONITOR UNABLE TO PALPATE PULSE. CODE BLUE CALLED PER ACLS. UNABLE TO REACH ROSC. DAUGHTER YESENIA MAIN NOTIFIED. POST MORTEM CARE RENDERED.
--- NOTE | 2020-04-29 04:48 | NUR ---
PT CODED AT 0421. CPR INITIATED. DARRON RUIZ AT BEDSIDE. PT AT 042. Addendum: 04/29/20 at 0450 by KARTIK PINO RT Amended: Links added.
--- NOTE | 2020-04-29 04:51 | NUR ---
ADOLESCENT COUNSELOR PT RELEASED BY [facility] .
--- NOTE | 2020-04-29 04:54 | NUR ---
DIRECT CARE STAFFER DAUGHTER YESENIA UNABLE TO GIVE ANY INFO SAMANTHA TOO DISTRAUGHT. WILL ATTEMPT CALLING HER AGAIN.
[2020-04-29] MEDS ORDERED: EPINEPHRINE (1:10,000) SYRINGE 1 MG/10 ML DISP.SYRIN IVP ONE (06:19)
[2020-04-29] MEDS ORDERED: FEE EMEERGENCY 1 MIN EA MC ONE (06:19)
== END 2020-04-29 06:20 | disposition expired | DRG 208 ==
LOC: ER 17:18 → OBSVTOIN 20:53 → TRANSITION 20:53 → TELE2 04-24 17:58 → ICU 04-26 18:08
PROVIDERS: ADMIT Student in an Organized Health Care Education/Training Program; ATTEND Family Medicine
PROC: 05HB33Z Insertion of Infusion Device into Right Basilic Vein, Percutaneous Approach (ICD-10-PCS; 2020-04-26)
PROC: 5A1945Z Respiratory Ventilation, 24-96 Consecutive Hours (ICD-10-PCS; principal; 2020-04-27)
PROC: 0BH17EZ Insertion of Endotracheal Airway into Trachea, Via Natural or Artificial Opening (ICD-10-PCS; 2020-04-27)
PROC: 05HY33Z Insertion of Infusion Device into Upper Vein, Percutaneous Approach (ICD-10-PCS; 2020-04-28)
PROC: 5A2204Z Restoration of Cardiac Rhythm, Single (ICD-10-PCS; 2020-04-29)
DX: U07.1 COVID-19 (principal); I21.A1 Myocardial infarction type 2; J96.01 Acute respiratory failure with hypoxia; J12.89 Other viral pneumonia; G92 Toxic encephalopathy; N17.0 Acute kidney failure with tubular necrosis; E44.0 Moderate protein-calorie malnutrition; I13.0 Hypertensive heart and chronic kidney disease with heart failure and stage 1 through stage 4 chronic kidney disease, or unspecified chronic kidney disease; I50.9 Heart failure, unspecified; I25.10 Atherosclerotic heart disease of native coronary artery without angina pectoris; E78.5 Hyperlipidemia, unspecified; E11.65 Type 2 diabetes mellitus with hyperglycemia; K21.9 Gastro-esophageal reflux disease without esophagitis; M19.90 Unspecified osteoarthritis, unspecified site; Z88.8 Allergy status to other drugs, medicaments and biological substances; Z79.02 Long term (current) use of antithrombotics/antiplatelets; Z79.899 Other long term (current) drug therapy; F41.9 Anxiety disorder, unspecified; I48.91 Unspecified atrial fibrillation; F03.90 Unspecified dementia, unspecified severity, without behavioral disturbance, psychotic disturbance, mood disturbance, and anxiety; E11.22 Type 2 diabetes mellitus with diabetic chronic kidney disease; N18.9 Chronic kidney disease, unspecified; E66.9 Obesity, unspecified; F09 Unspecified mental disorder due to known physiological condition; Z68.36 Body mass index [BMI] 36.0-36.9, adult
CPT/HCPCS: 31720; 36415; 36600; 71045-TC; 80048-TC; 80053-TC; 80061-TC; 82248-TC; 82533; 82570-TC; 82728-TC; 82803-TC; 83605-TC; 83615-TC; 83735-TC; 83880; 84100-TC; 84155-TC; 84300-TC; 84443-TC; 84484-TC; 85025-TC; 85378-TC; 85730-TC; 86140-TC; 87040-TC; 87081-TC; 87086-TC; 93307-TC; 94002-TC; 94003-TC; 94760-TC; 94799-TC; A4217; C1751; G0378; J0171; J0282; J1100; J1160; J1170; J1650; J1720; J2270; J2370; J2405; J2543; J2704; J2930; J3490; J7030; J7050; J7060